=== PATIENT | female | born 1980 | race Caucasian/White ===

== ENCOUNTER 2023-05-14 16:03 | Outpatient (CLI) | payer OTHER, SELFPAY | END 2023-05-14 16:04 | disposition home or self-care (01) | PROVIDERS: PCP Family Medicine; Visit Provider Family Medicine | DX: R10.9 Unspecified abdominal pain (principal); K58.9 Irritable bowel syndrome, unspecified | CPT/HCPCS: 80053; 82150; 83690; 86364 ==

== ENCOUNTER 2023-06-07 09:12 | Outpatient (CLI) | payer OTHER, SELFPAY ==
[2023-06-07 14:00] LABS: Chlamydia DNA Amplified* NOT DETECTED (No Detected); GC DNA Amplified* NOT DETECTED (No Detected)
== END 2023-06-07 09:13 | disposition home or self-care (01) ==
PROVIDERS: PCP Family Medicine; Visit Provider Family Medicine
DX: R30.0 Dysuria (principal)
CPT/HCPCS: 87086; 87491; 87591

== ENCOUNTER 2023-07-05 07:02 | Outpatient (CLI) | payer OTHER, SELFPAY ==
--- NOTE | 2023-07-05 07:15 | CRLHL7_ITS ---
For Patients: As a result of the Century Cures Act, medical imaging exams and procedure reports are released immediately into your electronic medical record. You may view this report before your referring provider. If you have questions, please contact your health care provider. INDICATION: Right upper quadrant pain. COMPARISON: None available. Correlation is made with ultrasound dated 04/12/2023. TECHNIQUE: Thin and thick slab MRCP images obtained as part of routine MRCP exam. FINDINGS: No intra or extrahepatic biliary ductal dilatation. A few small liver cysts are seen. No gallstones. No pericholecystic fluid/edema. No gallbladder distention. No gallstones. No pancreatic ductal dilatation. No hydronephrosis. Visualized bowel is nonobstructed. The spleen measures in the upper limits of normal. Adrenal glands appear unremarkable. Postoperative changes abdominal wall. No pleural effusion in the lung bases. No ascites in the upper abdomen. IMPRESSION: No intra or extrahepatic biliary ductal dilatation. No gallstones. No gallbladder distention. Dictated by Aamir Santiago MD @ 07/08/2023 8:07:35 AM (Electronically Signed)
== END 2023-07-05 07:03 | disposition home or self-care (01) ==
LOC: MRI 07:03
PROVIDERS: PCP Family Medicine; Visit Provider Family Medicine
DX: R10.11 Right upper quadrant pain (principal)
CPT/HCPCS: 74181

== ENCOUNTER 2023-08-15 07:48 | Outpatient (CLI) | payer OTHER, SELFPAY ==
--- NOTE | 2023-08-15 08:00 | CRLHL7_ITS ---
For Patients: As a result of the Century Cures Act, medical imaging exams and procedure reports are released immediately into your electronic medical record. You may view this report before your referring provider. If you have questions, please contact your health care provider. INDICATION: MALIGNANT NEOPLASM OF COLON TECHNIQUE: 5.17mCi 90l-Vg-Oosijoewio was injected intravenously. Images of the liver, gallbladder and abdomen were obtained for 45 minutes. 2.15mcg Kinevac IV was then administered and imaging continued for an additional 27 minutes. COMPARISON: Ultrasound 04/12/2023, MRI 07/05/2023 FINDINGS: There is good uptake of activity by the hepatocytes. There is visualization of the biliary tree, gallbladder and small bowel. In response to CCK administration, there is a normal gallbladder ejection fraction of 95 percent. IMPRESSION: 1. Normal study. There is no evidence of acute or chronic cholecystitis. 2. Normal gallbladder ejection fraction of 95 percent. Dictated by Rafa Carlson MD @ 08/15/2023 10:54:07 AM (Electronically Signed)
== END 2023-08-15 07:49 | disposition home or self-care (01) ==
LOC: NM 07:48
PROVIDERS: PCP Family Medicine; Visit Provider Internal Medicine Gastroenterology
DX: K59.00 Constipation, unspecified (principal); R10.11 Right upper quadrant pain; R11.0 Nausea; R12 Heartburn; R13.10 Dysphagia, unspecified; R14.0 Abdominal distension (gaseous)
CPT/HCPCS: 78227; A9537; J2805

== ENCOUNTER 2023-11-01 11:25 | Outpatient (CLI) | payer OTHER, SELFPAY | END 2023-11-01 11:26 | disposition home or self-care (01) | PROVIDERS: PCP Family Medicine; Visit Provider Registered Nurse | DX: N89.8 Other specified noninflammatory disorders of vagina (principal); R39.15 Urgency of urination | CPT/HCPCS: 87086 ==